=== PATIENT | male | born 1970 | race Caucasian/White ===

== ENCOUNTER 2017-04-04 19:49 | Emergency (ER) | payer OTHER ==
[2017-04-04 19:56] VITALS: BP 128/74; PULSE 79; TEMP 98.5; BMI 26.1
--- NOTE | 2017-04-04 19:56 | PDOC ---
Rapid Medical Evaluation Chief Complaint: Congestive Heart Failure Time Seen by Provider: 04/04/17 19:55 Medical Evaluation: Allergies Allergy/AdvReac Type Severity Reaction Status Date / Time No Known Allergies Allergy Verified 12/25/15 08:32 04/04/17 19:55 I have performed a brief in-person evaluation of this patient. The patient presents with a chief complain of: non productive cough/nasal congestion x5d. Momo fever/chills, n/v/d Pertinent physical exam findings:L/S CTAB I have ordered the following:cxr The patient will proceed to the ED for further evaluation.
--- NOTE | 2017-04-04 20:51 | PDOC ---
History of Present Illness - General Chief Complaint: Respiratory Stated Complaint: TROUBLE BREATHING Time Seen by Provider: 04/04/17 19:55 History Source: Patient Exam Limitations: No Limitations - History of Present Illness Initial Comments: 04/04/17 20:46 This is a 46-year-old man without significant past medical history of presents to the emergency department with 1 week dry unproductive cough. Patient denies any fevers. Patient states she's having difficulty breathing and increased pleuritic pain with respirations. Patient reports chest congestion. Patient states he seeking out care today as the chest congestion as gotten worse any feels that he is unable to clear mucus from his lungs. He denies any headaches, chills, abdominal pain, nausea, vomiting. Past History - Past Medical History Allergies/Adverse Reactions: Allergies Allergy/AdvReac Type Severity Reaction Status Date / Time No Known Allergies Allergy Verified 04/04/17 19:56 Home Medications: Ambulatory Orders NK [No Known Home Medication] 04/04/17 COPD: No Other medical history: denies - Suicide/Smoking/Psychosocial Hx Smoking Status: No Smoking History: Never smoked Number of Cigarettes Smoked Daily: 0 Hx Alcohol Use: No Drug/Substance Use Hx: No Substance Use Type: None Hx Substance Use Treatment: No Review of Systems - Review of Systems Able to Perform ROS?: Yes Is the patient limited Swedish proficient: No Constitutional: No: Symptoms Reported HEENTM: No: Symptoms Reported Respiratory: Yes: See HPI Cardiac (ROS): No: Symptoms Reported ABD/GI: No: Symptoms Reported : No: Symptoms Reported Musculoskeletal: No: Symptoms Reported Integumentary: No: Symptoms Reported Neurological: No: Symptoms reported *Physical Exam - Vital Signs Last Vital Signs Temp Pulse Resp BP Pulse Ox 98.5 F 79 18 128/74 99 04/04/17 19:54 04/04/17 19:54 04/04/17 19:54 04/04/17 19:54 04/04/17 19:54 - Physical Exam General Appearance: Yes: Appropriately Dressed. No: Apparent Distress HEENT: positive: RAFAELA, Pharyngeal Erythema, Nasal Congestion. negative: Tonsillar Exudate, Tonsillar Erythema Neck: positive: Trachea midline, Supple Respiratory/Chest: positive: Lungs Clear, Normal Breath Sounds. negative: Chest Tender, Respiratory Distress, Accessory Muscle Use Cardiovascular: positive: Regular Rhythm, Regular Rate, S1, S2. negative: Murmur Gastrointestinal/Abdominal: positive: Normal Bowel Sounds, Soft. negative: Tender Musculoskeletal: positive: Normal Inspection. negative: CVA Tenderness Integumentary: positive: Normal Color, Dry, Warm Neurologic: positive: cat operator II-XII NML intact, Fully Oriented, Alert, Normal Mood/ Affect, Normal Response, Motor Strength /5 Medical Decision Making - Medical Decision Making 04/04/17 20:47 A/P: This is a 46-year-old man without significant past medical history of presents to the emergency department with 1 week dry unproductive cough. Patient denies any fevers. Patient states she's having difficulty breathing and increased pleuritic pain with respirations. Patient reports chest congestion. Patient states he seeking out care today as the chest congestion as gotten worse any feels that he is unable to clear mucus from his lungs. He denies any headaches, chills, abdominal pain, nausea, vomiting. Evaluation of the oropharynx reveals peritonsillar erythema. There is no exudate or erythema on tonsils. There is no cobblestoning noted at posterior oropharynx. No tenderness over maxillary or frontal sinuses. TMs pearly silverio with appropriate light reflex. No streaking noted. There is no exudate or drainage noted in external auditory canals bilaterally. There is no cervical lymphadenopathy. Lungs clear to auscultation bilaterally. Respirations even and unlabored without sensory muscle use. S1 and S2 are present. Regular rate and rhythm. No murmurs rub or gallop. Abdomen soft nontender nondistended. Differential diagnosis includes pneumonia, bronchitis, viral infection I'll perform a chest x-ray and reevaluate patient after testing was complete. Patient is refusing pain medication at this time. 04/04/17 21:24 Chest x-ray as read by me: Costal angles clear without any signs of infiltrate or consolidations noted. Bony structures visualized are intact without any fractures. Cardiac silhouette is within normal limits. There is no change from previous x-rays. I discussed the physical exam findings, ancillary test results and final diagnoses with the patient. I answered all of the patient's questions. The patient was satisfied with the care received and felt comfortable with the discharge plan and treatment plan. The patient will call his doctor within 96 hours to arrange follow-up and will return to the Emergency Department with any new, persistent or worsening symptoms. *DC/Admit/Observation/Transfer Diagnosis at time of Disposition: Bronchitis - Discharge Dispostion Disposition: HOME Condition at time of disposition: Stable Admit: No - Referrals Referrals: Chris Ambriz [Primary Care Provider] - - Patient Instructions Additional Instructions: Take Tylenol or Motrin as needed for fever or pain. Follow manufacturers instructions for proper dosage. Keep well-hydrated. Take Mucinex as instructed by manufacturers instructions. Return to emergency department for fevers, worsening cough, chest pain, shortness of breath, dizziness, any other concerns. Thank you very much for choosing us to provide your emergent healthcare needs. - Post Discharge Activity
== END 2017-04-04 21:30 | disposition home or self-care (01) ==
LOC: JERFT 19:49
DX: J40 Bronchitis, not specified as acute or chronic (principal)
CPT/HCPCS: 71020-TC; 99281-25

== ENCOUNTER 2018-11-05 20:24 | Emergency (ER) | payer OTHER ==
--- NOTE | 2018-11-05 20:30 | PDOC ---
Rapid Medical Evaluation Time Seen by Provider: 11/05/18 20:28 Medical Evaluation: Allergies Allergy/AdvReac Type Severity Reaction Status Date / Time No Known Allergies Allergy Verified 04/04/17 19:56 11/05/18 20:28 I have performed a brief in-person evaluation of this patient. The patient presents with a chief complaint of: pleuritic chest pain and weakness x3 days Pertinent physical exam findings: Lungs CTAB. RRR. No m/r/g. I have ordered the following: labs, urine, cxr, ekg The patient will proceed to the ED for further evaluation. Discharge Disposition - Diagnosis Fatigue - Referrals - Patient Instructions - Post Discharge Activity
[2018-11-05 20:32] VITALS: BP 123/69; PULSE 69; TEMP 98.1; BMI 24.9
[2018-11-05] MEDS: SODIUM CHLORIDE 1,000 ML IV STA ×2 (21:53→22:06)
[2018-11-05 22:28] LABS: BASO % 0.2 % (0-2.0); EOS % 3.3 % (0-4.5); HEMATOCRIT 40.6 % (35.4-49); HEMOGLOBIN 14.1 GM/dL (11.7-16.9); LYMPH % 38.8 % (8-40); MCH 31.9 pg (25.7-33.7); MCHC 34.8 g/dl (32.0-35.9); MEAN CELL VOLUME 91.6 fl (80-96); MEAN PLT VOLUME 8.5 fl (7.5-11.1); MONO % 9.1 % (3.8-10.2); NEUT % 48.6 % (42.8-82.8); PLATELET COUNT 273 K/MM3 (134-434); RBC 4.43 M/mm3 (4.00-5.60); RDW 12.8 % (11.9-15.9); WHITE BLOOD COUNT 6.7 K/mm3 (4.0-10.0)
[2018-11-05 22:31] LABS: ALBUMIN 3.8 g/dl (3.4-5.0); ALK PHOS 120 U/L (45-117); ANION GAP 5 MMOL/L (8-16); BILIRUBIN,TOTAL 0.4 mg/dL (0.2-1); CALCIUM 8.9 mg/dL (8.5-10.1); CHLORIDE 104 mmol/L (98-107); CO2 29 mmol/L (21-32); CREATININE 0.7 mg/dL (0.55-1.3); GLUCOSE,RANDOM 108 mg/dL (74-106); MAGNESIUM 2.4 mg/dL (1.8-2.4); POTASSIUM 4.4 mmol/L (3.5-5.1); SGOT/AST 28 U/L (15-37); SGPT/ALT 42 U/L (13-61); SODIUM 138 mmol/L (136-145); TOT PROT 7.3 g/dl (6.4-8.2)
--- NOTE | 2018-11-05 22:47 | PDOC ---
*Physical Exam - Vital Signs Last Vital Signs Temp Pulse Resp BP Pulse Ox 98.1 F 69 18 123/69 99 11/05/18 20:29 11/05/18 20:29 11/05/18 20:29 11/05/18 20:29 11/05/18 20:29 ED Treatment Course - LABORATORY CBC & Chemistry Diagram: 11/05/18 21:50 11/05/18 21:50 - ADDITIONAL ORDERS Additional order review: Laboratory Results 11/05/18 21:50 Sodium 138 Potassium 4.4 Chloride 104 Carbon Dioxide 29 Anion Gap 5 L BUN 21.0 H Creatinine 0.7 Est GFR (CKD-EPI)AfAm 131.17 Est GFR (CKD-EPI)NonAf 113.17 Random Glucose 108 H Calcium 8.9 Magnesium 2.4 Total Bilirubin 0.4 AST 28 ALT 42 Alkaline Phosphatase 120 H Creatine Kinase 111 Troponin I < 0.02 Total Protein 7.3 Albumin 3.8 11/05/18 21:50 RBC 4.43 MCV 91.6 MCHC 34.8 RDW 12.8 MPV 8.5 Neutrophils % 48.6 Lymphocytes % 38.8 Monocytes % 9.1 Eosinophils % 3.3 Basophils % 0.2 - Medications Given in the ED: ED Medications Discontinued Medications Generic Name Dose Route Start Last Admin Trade Name Freq PRN Reason Stop Dose Admin Sodium Chloride 1,000 mls @ 1,000 mls/hr 11/05/18 20:31 11/05/18 22:06 Normal Saline - IV 11/05/18 21:30 Not Given ASDIR STA Medical Decision Making - Medical Decision Making 11/05/18 22:47 Case reviewed, agree with assessment and plan *DC/Admit/Observation/Transfer Diagnosis at time of Disposition: Fatigue - Referrals - Patient Instructions - Post Discharge Activity
--- NOTE | 2018-11-05 23:13 | PDOC ---
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) Past History - Past Medical History Allergies/Adverse Reactions: Allergies Allergy/AdvReac Type Severity Reaction Status Date / Time No Known Allergies Allergy Verified 11/05/18 20:32 Home Medications: Ambulatory Orders NK [No Known Home Medication] 04/04/17 COPD: No - Suicide/Smoking/Psychosocial Hx Smoking Status: No Smoking History: Never smoked Number of Cigarettes Smoked Daily: 0 Hx Alcohol Use: No Drug/Substance Use Hx: No Substance Use Type: None Hx Substance Use Treatment: No *Physical Exam - Vital Signs Last Vital Signs Temp Pulse Resp BP Pulse Ox 98.1 F 69 18 123/69 99 11/05/18 20:29 11/05/18 20:29 11/05/18 20:29 11/05/18 20:29 11/05/18 20:29 - Physical Exam General Appearance: No: Apparent Distress HEENT: positive: Pharynx Normal Respiratory/Chest: positive: Lungs Clear, Normal Breath Sounds. negative: Respiratory Distress Cardiovascular: positive: Regular Rhythm, Regular Rate, S1, S2. negative: Murmur Gastrointestinal/Abdominal: positive: Normal Bowel Sounds, Soft. negative: Tender, Distended, Guarding, Rebound Extremity: negative: Pedal Edema, Swelling, Calf Tenderness Neurologic: positive: Alert, Normal Mood/Affect Heart Score/ECG Review - History History: Slightly suspicious - Electrocardiogram EKG: Normal - Age Age: 45-65 - Risk Factors Based on the list above the patient has:: No risk factors known - Troponin Troponin: </= normal limit - Score Heart Score - Total: 1 ED Treatment Course - LABORATORY CBC & Chemistry Diagram: 11/05/18 21:50 11/05/18 21:50 - ADDITIONAL ORDERS Additional order review: Laboratory Results 11/05/18 21:50 Sodium 138 Potassium 4.4 Chloride 104 Carbon Dioxide 29 Anion Gap 5 L BUN 21.0 H Creatinine 0.7 Est GFR (CKD-EPI)AfAm 131.17 Est GFR (CKD-EPI)NonAf 113.17 Random Glucose 108 H Calcium 8.9 Magnesium 2.4 Total Bilirubin 0.4 AST 28 ALT 42 Alkaline Phosphatase 120 H Creatine Kinase 111 Troponin I < 0.02 Total Protein 7.3 Albumin 3.8 07/11/19 21:50 RBC 4.43 MCV 91.6 MCHC 34.8 RDW 12.8 MPV 8.5 Neutrophils % 48.6 Lymphocytes % 38.8 Monocytes % 9.1 Eosinophils % 3.3 Basophils % 0.2 - Medications Given in the ED: ED Medications Discontinued Medications Generic Name Dose Route Start Last Admin Trade Name Freq PRN Reason Stop Dose Admin Sodium Chloride 1,000 mls @ 1,000 mls/hr 11/05/18 20:31 11/05/18 22:06 Normal Saline - IV 11/05/18 21:30 Not Given ASDIR STA Medical Decision Making - Medical Decision Making 48 y/o M with no sig pmh, 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 Also with occasional nasal congestion. Denies fever, cough, rhinorrhea, throat pain, n/v/d. Patient was seen in 2011 for similar complaints ; was told it was probable bronchitis vs gastritis at the time. Denies smoking, drug use, recent travel. Denies FH of CAD or IA. Denies any recent surgeries PERC negative EKG: NSR 64 bpm, TWI lead V2 CXR negative Labs unremarkable No significant risk factors for ACS Heart score 1 Stable for dc 11/05/18 23:09 *DC/Admit/Observation/Transfer Diagnosis at time of Disposition: Pleuritic chest pain - Discharge Dispostion Disposition: HOME Condition at time of disposition: Stable Decision to Admit order: No - Referrals - Patient Instructions Printed Discharge Instructions: DI for Chest Pain Additional Instructions: Thank you for choosing [facility]. It was a pleasure taking care of you. Your labs and chest xray were normal Follow-up with your doctor in 2 days for further evaluation Return to the Emergency Department if your symptoms worsen or persist or have other concerning symptoms. Ghada por elegir el [facility]. Fue un placer cuidar de ti. Tus laboratorios y radiografas de trax cassandra normales. Reina un seguimiento con camacho mdico en 2 morales para isaias evaluacin adicional. Regrese al Departamento de Emergencias si shahzad sntomas empeoran o persisten o si tiene otros sntomas relacionados. - Post Discharge Activity
--- NOTE | 2018-11-06 13:33 | EKG ---
Test Reason : Blood Pressure : / mmHG Vent. Rate : 064 BPM Atrial Rate : 064 BPM P-R Int : 166 ms QRS Dur : 084 ms QT Int : 386 ms P-R-T Axes : 049 048 040 degrees QTc Int : 398 ms NORMAL SINUS RHYTHM POSSIBLE LEFT ATRIAL ENLARGEMENT WHEN COMPARED WITH ECG OF 25-DEC-2015 08:28, NO SIGNIFICANT CHANGE WAS FOUND Confirmed by AYLA HARRIS MD ([id number]) on 11/06/2018 1:33:02 PM Referred By: Confirmed By:AYLA HARRIS MD
== END 2018-11-05 23:22 | disposition home or self-care (01) ==
LOC: JER 20:24
DX: R07.81 Pleurodynia (principal)
CPT/HCPCS: 36415; 71046-TC-FY; 80053; 82550; 83735; 84484; 85025; 86618; 86666; 86753; 93005; 93010; 99283-25; J7030

== ENCOUNTER 2019-05-17 09:46 | Emergency (ER) | payer OTHER ==
[2019-05-17 10:00] VITALS: BP 127/74; PULSE 98; BMI 25.5
[2019-05-17] MEDS ORDERED: ACETAMINOPHEN 325 MG TABLET (FP) PO ONE (10:35)
[2019-05-17] MEDS ORDERED: ACETAMINOPHEN 325 MG TABLET (FP) ONE (10:37)
[2019-05-17 11:12] VITALS: TEMP 99.8
--- NOTE | 2019-05-17 11:34 | PDOC ---
History of Present Illness - General Chief Complaint: Cold Symptoms Stated Complaint: Cold Symptoms Time Seen by Provider: 05/17/19 10:14 History Source: Patient Exam Limitations: No Limitations Past History - Past Medical History Allergies/Adverse Reactions: Allergies Allergy/AdvReac Type Severity Reaction Status Date / Time No Known Allergies Allergy Verified 11/05/18 20:32 Home Medications: Ambulatory Orders NK [No Known Home Medication] 04/04/17 COPD: No Other medical history: DENIES - Immunization History Immunization Up to Date: Yes - Psycho Social/Smoking Cessation Hx Smoking Status: No Smoking History: Never smoked Number of Cigarettes Smoked Daily: 0 Hx Alcohol Use: No Drug/Substance Use Hx: No Substance Use Type: None Hx Substance Use Treatment: No *Physical Exam - Vital Signs Last Vital Signs Temp Pulse Resp BP Pulse Ox 99.8 F H 98 H 18 127/74 100 05/17/19 11:12 05/17/19 09:57 05/17/19 09:57 05/17/19 09:57 05/17/19 09:57 - Physical Exam General Appearance: No: Apparent Distress HEENT: positive: Normal ENT Inspection, TMs Normal, Pharynx Normal. negative: Sinus Tenderness Respiratory/Chest: positive: Lungs Clear, Normal Breath Sounds. negative: Respiratory Distress Cardiovascular: positive: Regular Rhythm, Regular Rate, S1, S2. negative: Murmur Gastrointestinal/Abdominal: positive: Soft. negative: Tender Integumentary: positive: Normal Color Neurologic: positive: Alert ED Treatment Course - Medications Given in the ED: ED Medications Discontinued Medications Generic Name Dose Route Start Last Admin Trade Name Freq PRN Reason Stop Dose Admin Acetaminophen 975 mg 05/17/19 10:35 05/17/19 10:38 Tylenol - PO 05/17/19 10:36 975 mg ONCE ONE Administration Medical Decision Making - Medical Decision Making 48 y/o M with no sig pmh presents with subjective fever, body aches, chills, cough, rhinorrhea x 4 days. +sick family members at home with similar sxs. Has been using mucinex without relief. Did not take any antipyretics today. Denies recent travel, sob, cp, abd pain, n/v/d. Likely viral URI Patient outside window frame for starting flu treatment Given Tylenol with reduction of fever supportive care encourage 05/17/19 11:30 Discharge - Discharge Information Problems reviewed: Yes Clinical Impression/Diagnosis: Viral URI Condition: Stable Disposition: HOME - Admission No - Additional Discharge Information Prescription Drug Monitoring Program (I-STOP) results: I-STOP not reviewed - Follow up/Referral Referrals: Chris Ambriz [Primary Care Provider] - 2 Days - Patient Discharge Instructions Patient Printed Discharge Instructions: DI for Viral Upper Respiratory Infection -- Adult Additional Instructions: Thank you for choosing [facility]. It was a pleasure taking care of you. Take Tylenol every 4 and Motrin every 6 hours as needed for fever Recommend rest, hydration Follow-up with your doctor in 2 days Return to the Emergency Department if your symptoms worsen or persist or have other concerning symptoms. - Post Discharge Activity
== END 2019-05-17 11:47 | disposition home or self-care (01) ==
LOC: JERFT 09:46
DX: J06.9 Acute upper respiratory infection, unspecified (principal); B97.89 Other viral agents as the cause of diseases classified elsewhere
CPT/HCPCS: 99281-25

== ENCOUNTER 2019-07-17 10:08 | Emergency (ER) | payer SELFPAY ==
[2019-07-17 10:21] VITALS: BP 144/91; PULSE 92; TEMP 98.1; BMI 29.8
--- NOTE | 2019-07-17 10:38 | PDOC ---
History of Present Illness - General Chief Complaint: Cold Symptoms Stated Complaint: COVID EXPO Time Seen by Provider: 07/17/19 10:24 History Source: Patient Exam Limitations: No Limitations - History of Present Illness Initial Comments: 07/17/19 10:33 48 year old male with no significant medical history presented today with 3 weeks of coughing states coughing is now productive with yellowish phlegm and shortness of breath. Patient reports that his daughter was exposed to a co- worker that tested positive for covid-19. Denies fever, chills, bodyaches, sore throat, vomiting or diarrhea. Also states no recent travel. Is this a multiple visit Asthma Patient?: No Timing/Duration: reports: other (3 weeks) Severity: reports: mild Possible Cause: Yes: no prior episodes Modifying Factors: improves with: coughing Associated Symptoms: reports: cough, shortness of breath. denies: fever/chills Past History - Travel Traveled outside of the country in the last 30 days: No Close contact w/someone who was outside of country & ill: No - Past Medical History Allergies/Adverse Reactions: Allergies Allergy/AdvReac Type Severity Reaction Status Date / Time No Known Allergies Allergy Verified 07/17/19 10:22 Home Medications: Ambulatory Orders Azithromycin [Zithromax 250mg Tablets -] 250 mg PO UTDICT #6 tab 07/17/19 COPD: No - Immunization History Immunization Up to Date: Yes - Psycho Social/Smoking Cessation Hx Smoking Status: No Smoking History: Never smoked Number of Cigarettes Smoked Daily: 0 Hx Alcohol Use: No Drug/Substance Use Hx: No Substance Use Type: None Hx Substance Use Treatment: No Respiratory Specific PMHX - Complaint Specific PMHX Hx Airway Support: No Hx Asthma: No Hx Vaping: No Hx Allergic Rhinitis: No Hx Pulmonary Embolus: No Review of Systems - Review of Systems Able to Perform ROS?: Yes Is the patient limited Kinyarwanda proficient: No Constitutional: No: Chills, Fever, Malaise HEENTM: No: Nose Pain, Nose Congestion Respiratory: Yes: Cough. No: Shortness of Breath Cardiac (ROS): No: Chest Pain ABD/GI: No: Poor Appetite : No: Hematuria Musculoskeletal: No: Joint Pain Integumentary: No: Bruising Neurological: No: Headache, Numbness, Paresthesia *Physical Exam - Vital Signs Last Vital Signs Temp Pulse Resp BP Pulse Ox 98.1 F 92 H 20 144/91 100 07/17/19 10:19 07/17/19 10:19 07/17/19 10:19 07/17/19 10:07/17/19 10:19 - Physical Exam General Appearance: Yes: Nourished, Appropriately Dressed HEENT: positive: TMs Normal, Pharynx Normal Neck: positive: Supple. 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 Patient reports that his daughter was exposed to a co- worker that tested positive for covid-19. Denies fever, chills, bodyaches, sore throat, vomiting or diarrhea. Also states no recent travel. coughing x 3 weeks this patient screen is not positive for covid-19 chest xray will be ordered for coughing 07/17/19 11:31 chest xray Discharge - Discharge Information Problems reviewed: Yes Clinical Impression/Diagnosis: Bronchitis Condition: Good Disposition: HOME - Admission No - Additional Discharge Information Prescriptions: Azithromycin [Zithromax 250mg Tablets -] 250 mg PO UTDICT #6 tab - Follow up/Referral - Patient Discharge Instructions Patient Printed Discharge Instructions: DI for Viral Upper Respiratory Infection -- Adult Additional Instructions: Please drink plenty fluids and rest Take medication as prescribed. May take ibuprofen and acetaminophen for pain and fever - Post Discharge Activity Work/Back to School Note: Back to Work
== END 2019-07-17 11:41 | disposition home or self-care (01) ==
LOC: JER 10:08
DX: Z20.828 Contact with and (suspected) exposure to other viral communicable diseases (principal); J40 Bronchitis, not specified as acute or chronic; R05 Cough; R06.02 Shortness of breath
CPT/HCPCS: 71045-TC-FY; 99283-25

== ENCOUNTER 2020-07-29 18:19 | Emergency (ER) | payer SELFPAY ==
[2020-07-29 18:29] VITALS: TEMP 98.1; BMI 28.3
[2020-07-29 20:25] LABS: BASO % 0.6 % (0-2.0); EOS % 1.9 % (0-4.5); HEMATOCRIT 38.1 % (35.4-49); HEMOGLOBIN 13.1 GM/dL (11.7-16.9); LYMPH % 37.7 % (8-40); MCH 31.6 pg (25.7-33.7); MCHC 34.5 g/dl (32.0-35.9); MEAN CELL VOLUME 91.7 fl (80-96); MEAN PLT VOLUME 8.7 fl (7.5-11.1); NEUT % 51.8 % (42.8-82.8); PLATELET COUNT 269 K/MM3 (134-434); RBC 4.15 M/mm3 (4.00-5.60); RDW 13.2 % (11.9-15.9); WHITE BLOOD COUNT 6.7 K/mm3 (4.0-10.0)
[2020-07-29 20:48] LABS: CHLORIDE 106 mmol/L (98-107); POTASSIUM 4.6 mmol/L (3.5-5.1); SODIUM 138 mmol/L (136-145)
[2020-07-29] MEDS ORDERED: ACETAMINOPHEN 325 MG TABLET (FP) PO ONE (20:48)
[2020-07-29] MEDS ORDERED: MAG HYDROX/AL HYDROX/SIMETH 30 ML UNIT-DOSE CUP PO ONE (20:48)
[2020-07-29] MEDS ORDERED: FAMOTIDINE 20 MG/50 ML IVPB 20 MG/50 ML MG IVPB ONE ×2 (20:48→20:59)
[2020-07-29 20:51] LABS: ALBUMIN 3.9 g/dl (3.4-5.0); ANION GAP 6 MMOL/L (8-16); BLOOD UREA NITROGEN 14.4 mg/dL (7-18); CO2 26 mmol/L (21-32); GLUCOSE,RANDOM 92 mg/dL (74-106); LIPASE 82 U/L (73-393)
[2020-07-29 20:54] LABS: CREATININE 0.6 mg/dL (0.55-1.3); SGOT/AST 31 U/L (15-37); SGPT/ALT 35 U/L (13-61)
[2020-07-29 20:55] LABS: BILIRUBIN,TOTAL 0.4 mg/dL (0.2-1); TOT PROT 7.4 g/dl (6.4-8.2)
[2020-07-29 20:56] LABS: ALK PHOS 95 U/L (45-117)
[2020-07-29 20:58] LABS: N-TERMINAL BNP 25.4 pg/ml (5-125)
[2020-07-29] MEDS ORDERED: ACETAMINOPHEN 325 MG TABLET (FP) ONE (20:59)
[2020-07-29] MEDS ORDERED: MAG HYDROX/AL HYDROX/SIMETH 30 ML UNIT-DOSE CUP ONE (20:59)
[2020-07-29 22:57] VITALS: BP 129/78; PULSE 73
== END 2020-07-29 22:57 | disposition home or self-care (01) ==
LOC: JER 18:19 → SUPCPDRO 18:19 → JER 22:57
PROC: 3E033GC Introduction of Other Therapeutic Substance into Peripheral Vein, Percutaneous Approach (ICD-10-PCS; principal; 2020-07-29)
DX: R10.9 Unspecified abdominal pain (principal)
CPT/HCPCS: 36415; 71045-TC-FY; 76705-TC; 80053; 83690; 83880; 84484; 85025; 93005; 93010; 99285-25

== ENCOUNTER 2021-12-08 14:39 | Emergency (ER) | payer OTHER ==
[2021-12-08 14:48] VITALS: BP 126/79; PULSE 67; RESP 19; TEMP 98; BMI 27.8
[2021-12-08] MEDS ORDERED: MECLIZINE HCL 25 MG TABLET (FP) PO ONE (15:22)
[2021-12-08] MEDS ORDERED: ASPIRIN 81 MG CHEWABLE TABLETS PO ONE (15:22)
[2021-12-08] MEDS ORDERED: ASPIRIN 81 MG CHEWABLE TABLETS ONE (15:27)
[2021-12-08] MEDS ORDERED: MECLIZINE HCL 12.5 MG TABLET ONE (15:27)
[2021-12-08] MEDS ORDERED: MECLIZINE HCL 25 MG TABLET (FP) ONE (15:28)
[2021-12-08 15:46] LABS: BASO % 0.2 % (0-2.0); EOS % 1.6 % (0-4.5); HEMATOCRIT 39.7 % (35.4-49); HEMOGLOBIN 14.3 GM/dL (11.7-16.9); LYMPH % 33.7 % (8-40); MCHC 35.9 g/dl (32.0-35.9); MEAN CELL VOLUME 89.1 fl (80-96); MONO % 7.3 % (3.8-10.2); NEUT % 57.2 % (42.8-82.8); PLATELET COUNT 243 10^3/uL (134-434); RBC 4.46 M/mm3 (4.00-5.60); RDW 12.4 % (11.9-15.9); WHITE BLOOD COUNT 6.2 K/mm3 (4.0-10.0)
[2021-12-08 16:14] LABS: CHLORIDE 105 mmol/L (98-107); SODIUM 140 mmol/L (136-145)
[2021-12-08 16:17] LABS: BLOOD UREA NITROGEN 15.2 mg/dL (7-18); CALCIUM 9.4 mg/dL (8.5-10.1)
[2021-12-08 16:18] LABS: ALBUMIN 4.2 g/dl (3.4-5.0); ANION GAP 5 MMOL/L (8-16); CO2 30 mmol/L (21-32); GLUCOSE,RANDOM 91 mg/dL (74-106)
[2021-12-08 16:21] LABS: CREATININE 0.8 mg/dL (0.55-1.3); SGOT/AST 25 U/L (15-37); SGPT/ALT 36 U/L (13-61)
[2021-12-08 16:22] LABS: BILIRUBIN,TOTAL 0.7 mg/dL (0.2-1); TOT PROT 7.9 g/dl (6.4-8.2)
[2021-12-08 16:23] LABS: ALK PHOS 115 U/L (45-117)
== END 2021-12-08 17:18 | disposition home or self-care (01) ==
LOC: JERFT 14:39 → JER 14:39 → JERFT 17:18
DX: R42 Dizziness and giddiness (principal)
CPT/HCPCS: 36415; 70450-TC; 71046-TC-FY; 80053; 84484; 85025; 93005; 93010; 99285-25

== ENCOUNTER 2022-06-09 19:59 | Emergency (ER) | payer OTHER ==
[2022-06-09 20:04] VITALS: BP 147/87; PULSE 81; RESP 18; TEMP 97.9; BMI 27.8
[2022-06-09] MEDS ORDERED: POLYETHYLENE GLYCOL (HEALTHYLAX) 3350 17 GM PACKET PO ONE (21:15)
[2022-06-09] MEDS ORDERED: POLYETHYLENE GLYCOL (HEALTHYLAX) 3350 17 GM PACKET ONE (21:26)
[2022-06-09] MEDS ORDERED: SIMETHICONE 80 MG TAB.CHEW (FP) PO ONE (21:27)
[2022-06-09] MEDS ORDERED: SIMETHICONE 80 MG TAB.CHEW (FP) ONE (21:29)
== END 2022-06-09 22:05 | disposition home or self-care (01) ==
LOC: JER 19:59
DX: K59.00 Constipation, unspecified (principal)
CPT/HCPCS: 0241U-QW; 99283-25

== ENCOUNTER 2022-07-27 23:51 | Emergency (ER) | payer OTHER ==
[2022-07-28 00:06] VITALS: BP 145/86; PULSE 71; RESP 20; TEMP 98; BMI 28.3
[2022-07-28 01:26] LABS: BASO % 0.4 % (0-2.0); EOS % 2.5 % (0-4.5); HEMATOCRIT 39.1 % (35.4-49); HEMOGLOBIN 13.5 GM/dL (11.7-16.9); LYMPH % 39.3 % (8-40); MCH 31.3 pg (25.7-33.7); MCHC 34.5 g/dl (32.0-35.9); MEAN CELL VOLUME 90.5 fl (80-96); MEAN PLT VOLUME 8.6 fl (7.5-11.1); MONO % 8.9 % (3.8-10.2); NEUT % 48.9 % (42.8-82.8); PLATELET COUNT 251 10^3/uL (134-434); RBC 4.32 M/mm3 (4.00-5.60); RDW 13.3 % (11.9-15.9); WHITE BLOOD COUNT 6.1 K/mm3 (4.0-10.0)
[2022-07-28 01:27] LABS: INR 1.02 (0.83-1.09); PROTHROMBIN TIME (PATIENT) 11.8 SEC (9.7-13.0)
[2022-07-28 01:38] LABS: CHLORIDE 110 mmol/L (98-107); SODIUM 140 mmol/L (136-145)
[2022-07-28 01:41] LABS: ALBUMIN 3.8 g/dl (3.4-5.0); ANION GAP 4 MMOL/L (8-16); BLOOD UREA NITROGEN 19.5 mg/dL (7-18); CALCIUM 8.9 mg/dL (8.5-10.1); CO2 27 mmol/L (21-32); GLUCOSE,RANDOM 120 mg/dL (74-106)
[2022-07-28 01:44] LABS: CREATININE 1.1 mg/dL (0.55-1.3)
[2022-07-28 01:45] LABS: SGOT/AST 36 U/L (15-37); SGPT/ALT 53 U/L (13-61)
[2022-07-28 01:46] LABS: BILIRUBIN,TOTAL 0.2 mg/dL (0.2-1); TOT PROT 7.3 g/dl (6.4-8.2)
[2022-07-28 01:47] LABS: ALK PHOS 120 U/L (45-117)
[2022-07-28] MEDS ORDERED: ACETAMINOPHEN 500 MG TABLET (FP) PO ONE (02:32)
[2022-07-28] MEDS ORDERED: LIDOCAINE 5% TOPICAL PATCH TP ONE (02:33)
[2022-07-28] MEDS ORDERED: ACETAMINOPHEN 325 MG TABLET (FP) ONE (02:49)
[2022-07-28] MEDS ORDERED: LIDOCAINE 5% TOPICAL PATCH ONE (02:49)
[2022-07-28] MEDS ORDERED: LIDOCAINE PATCH REMOVAL MC SCH (22:00)
== END 2022-07-28 02:50 | disposition home or self-care (01) ==
LOC: JER 23:51
DX: R06.02 Shortness of breath (principal); R07.89 Other chest pain; Z20.822 Contact with and (suspected) exposure to COVID-19
CPT/HCPCS: 0241U-QW; 36415; 71046-TC-FY; 80053; 82550; 84484; 85025; 85610; 93005; 93010; 99285-25

== ENCOUNTER 2022-08-23 18:40 | Emergency (ER) | payer OTHER ==
[2022-08-23 18:46] VITALS: RESP 18; TEMP 98; BMI 27.6
[2022-08-23 20:05] LABS: BASO % 0.4 % (0-2.0); EOS % 0.7 % (0-4.5); HEMATOCRIT 39.8 % (35.4-49); HEMOGLOBIN 14.1 GM/dL (11.7-16.9); LYMPH % 26.2 % (8-40); MCH 31.6 pg (25.7-33.7); MCHC 35.4 g/dl (32.0-35.9); MEAN CELL VOLUME 89.1 fl (80-96); MEAN PLT VOLUME 7.9 fl (7.5-11.1); MONO % 6.2 % (3.8-10.2); NEUT % 66.5 % (42.8-82.8); PLATELET COUNT 278 10^3/uL (134-434); RBC 4.47 M/mm3 (4.00-5.60); RDW 13.2 % (11.9-15.9); WHITE BLOOD COUNT 9.4 K/mm3 (4.0-10.0)
[2022-08-23 20:11] LABS: INR 1.01 (0.83-1.09); PROTHROMBIN TIME (PATIENT) 11.7 SEC (9.7-13.0)
[2022-08-23 20:14] LABS: ACTIVATED PTT 35.2 SECONDS (25.2-36.5)
[2022-08-23 20:24] LABS: POTASSIUM 3.9 mmol/L (3.5-5.1)
[2022-08-23 20:26] LABS: CALCIUM 9.5 mg/dL (8.5-10.1)
[2022-08-23 20:27] LABS: BLOOD UREA NITROGEN 12.7 mg/dL (7-18)
[2022-08-23 20:29] LABS: CREATININE 0.7 mg/dL (0.55-1.3)
[2022-08-23 20:31] LABS: BILIRUBIN,TOTAL 0.4 mg/dL (0.2-1); TOT PROT 7.5 g/dl (6.4-8.2)
[2022-08-23 23:22] VITALS: BP 122/85; PULSE 65
== END 2022-08-23 23:23 | disposition home or self-care (01) ==
LOC: JER 18:40
DX: R06.02 Shortness of breath (principal); R53.1 Weakness
CPT/HCPCS: 0241U-QW; 36415; 71250-TC; 80053; 84484; 85025; 85610; 85730; 93005; 93010; 99285-25

== ENCOUNTER 2022-08-31 21:28 | Emergency (ER) | payer OTHER ==
[2022-08-31 21:34] VITALS: BP 122/72; PULSE 74; RESP 19; TEMP 98; BMI 27.6
[2022-09-01] MEDS ORDERED: AZITHROMYCIN 500 MG TABLET PO SCH (10:00)
== END 2022-09-01 01:13 | disposition home or self-care (01) ==
LOC: JERFT 21:28 → JER 21:28
DX: R05.9 Cough, unspecified (principal); J18.9 Pneumonia, unspecified organism; Z20.822 Contact with and (suspected) exposure to COVID-19
CPT/HCPCS: 0241U-QW; 71046-TC-FY; 99284-25

== ENCOUNTER 2022-12-18 10:49 | Emergency (ER) | payer OTHER ==
[2022-12-18 10:58] VITALS: BP 132/80; PULSE 74; RESP 18; TEMP 98.1; BMI 28.5
[2022-12-18] MEDS ORDERED: KETOROLAC TROMETHAMINE 30 MG/1 ML VIAL IM ONE (12:03)
[2022-12-18] MEDS ORDERED: LIDOCAINE 5% TOPICAL PATCH TP ONE (12:03)
[2022-12-18] MEDS ORDERED: CYCLOBENZAPRINE HCL 10 MG TABLET (FP) PO ONE (12:03)
[2022-12-18] MEDS ORDERED: ACETAMINOPHEN 500 MG TABLET (FP) PO ONE (12:03)
[2022-12-18] MEDS ORDERED: CYCLOBENZAPRINE HCL 10 MG TABLET (FP) ONE (12:08)
[2022-12-18] MEDS ORDERED: LIDOCAINE 5% TOPICAL PATCH ONE (12:08)
[2022-12-18] MEDS ORDERED: KETOROLAC TROMETHAMINE 15 MG/ML VIAL ONE (12:08)
[2022-12-18] MEDS ORDERED: ACETAMINOPHEN 500 MG TABLET (FP) ONE (12:08)
[2022-12-18] MEDS ORDERED: LIDOCAINE PATCH REMOVAL MC SCH (22:00)
== END 2022-12-18 14:08 | disposition home or self-care (01) ==
LOC: JERFT 10:49
PROC: 3E0233Z Introduction of Anti-inflammatory into Muscle, Percutaneous Approach (ICD-10-PCS; principal; 2022-12-18)
DX: S39.012A Strain of muscle, fascia and tendon of lower back, initial encounter (principal); X50.1XXA Overexertion from prolonged static or awkward postures, initial encounter; Y99.0 Civilian activity done for income or pay
CPT/HCPCS: 99284-25

== ENCOUNTER 2023-09-20 17:47 | Emergency (ER) | payer OTHER ==
[2023-09-20 17:54] VITALS: BP 126/77; PULSE 74; RESP 18; TEMP 98; BMI 28.3
[2023-09-20 18:57] LABS: HEMATOCRIT 40.9 % (35.4-49); HEMOGLOBIN 14.4 GM/dL (11.7-16.9); MCH 32.2 pg (25.7-33.7); MCHC 35.3 g/dl (32.0-35.9); RBC 4.49 M/mm3 (4.00-5.60); WHITE BLOOD COUNT 7.2 K/mm3 (4.0-10.0)
[2023-09-20 18:58] LABS: BASO % 0.3 % (0-2.0); EOS % 1.4 % (0-4.5); MONO % 6.5 % (3.8-10.2); NEUT % 58.8 % (42.8-82.8); PLATELET COUNT 247 10^3/uL (134-434)
[2023-09-20 19:14] LABS: URINE APPEARANCE CLEAR; URINE BILIRUBIN NEGATIVE (NEGATIVE); URINE COLOR YELLOW; URINE GLUCOSE (UA) NEGATIVE (NEGATIVE); URINE KETONE TRACE (NEGATIVE); URINE LEUK ESTERASE NEGATIVE (NEGATIVE); URINE NITRITE NEGATIVE (NEGATIVE); URINE PROTEIN NEGATIVE (NEGATIVE); URINE UROBILINOGEN 0.2 mg/dL (0.2-1.0)
[2023-09-20 19:18] LABS: CALCIUM 9.1 mg/dL (8.5-10.1)
[2023-09-20 19:19] LABS: ALBUMIN 4.1 g/dl (3.4-5.0); BLOOD UREA NITROGEN 18.8 mg/dL (7-18)
[2023-09-20 19:22] LABS: CREATININE 0.8 mg/dL (0.55-1.3)
[2023-09-20 19:23] LABS: BILIRUBIN,TOTAL 0.4 mg/dL (0.2-1); TOT PROT 7.6 g/dl (6.4-8.2)
[2023-09-20] MEDS: SODIUM CHLORIDE 0.9% 500 ML INFUS.BAG IV ONE (20:07)
== END 2023-09-20 21:11 | disposition home or self-care (01) ==
LOC: JER 17:47
DX: R53.83 Other fatigue (principal); E86.0 Dehydration
CPT/HCPCS: 36415; 80053; 81003; 82962; 85025; 87086; 93005; 93010; 99284-25

== ENCOUNTER 2024-04-24 18:05 | Emergency (ER) | payer OTHER ==
[2024-04-24 18:21] VITALS: BP 126/84; PULSE 102; RESP 16; TEMP 99.1; BMI 25.2
[2024-04-24] MEDS ORDERED: ONDANSETRON 4 MG/2 ML VIAL ONE (20:18)
[2024-04-24] MEDS ORDERED: ACETAMINOPHEN 325 MG TABLET (FP) ONE (20:18)
[2024-04-24] MEDS ORDERED: MAG HYDROX/AL HYDROX/SIMETH 30 ML UNIT-DOSE CUP ONE (20:18)
[2024-04-24] MEDS ORDERED: FAMOTIDINE 20 MG/50 ML IVPB 20 MG/50 ML MG IVPB ONE (20:18)
[2024-04-24] MEDS: ACETAMINOPHEN 500 MG TABLET (FP) PO ONE (20:53)
[2024-04-24] MEDS: FAMOTIDINE 20 MG/50 ML IVPB 20 MG/50 ML MG IVPB ONE (20:53)
[2024-04-24] MEDS: ONDANSETRON 4 MG/2 ML VIAL IVPB ONE (20:53)
[2024-04-24] MEDS: MAG HYDROX/AL HYDROX/SIMETH -MYLANTA- ORAL SUSPENSION PO ONE (20:53)
[2024-04-24 21:06] LABS: BASO % 0.1 % (0-2.0); EOS % 0.1 % (0-4.5); HEMATOCRIT 45.6 % (35.4-49); HEMOGLOBIN 15.6 GM/dL (11.7-16.9); LYMPH % 7.4 % (8-40); MCHC 34.2 g/dl (32.0-35.9); MEAN CELL VOLUME 90.6 fl (80-96); MEAN PLT VOLUME 8.5 fl (7.5-11.1); MONO % 5.2 % (3.8-10.2); NEUT % 87.2 % (42.8-82.8); PLATELET COUNT 247 10^3/uL (134-434); RBC 5.04 M/mm3 (4.00-5.60); RDW 12.9 % (11.9-15.9); WHITE BLOOD COUNT 11.5 K/mm3 (4.0-10.0)
[2024-04-24 21:41] LABS: POTASSIUM 4.2 mmol/L (3.5-5.1)
[2024-04-24 21:44] LABS: ALBUMIN 3.9 g/dl (3.4-5.0); BLOOD UREA NITROGEN 21.6 mg/dL (7-18); CALCIUM 9.3 mg/dL (8.5-10.1)
[2024-04-24 21:47] LABS: CREATININE 0.8 mg/dL (0.55-1.3)
[2024-04-24 21:49] LABS: BILIRUBIN,TOTAL 0.6 mg/dL (0.2-1); TOT PROT 7.5 g/dl (6.4-8.2)
== END 2024-04-24 22:51 | disposition home or self-care (01) ==
LOC: JER 18:05
PROC: 3E033GC Introduction of Other Therapeutic Substance into Peripheral Vein, Percutaneous Approach (ICD-10-PCS; principal; 2024-04-24)
PROC: 3E033GC Introduction of Other Therapeutic Substance into Peripheral Vein, Percutaneous Approach (ICD-10-PCS; 2024-04-24)
DX: R11.2 Nausea with vomiting, unspecified (principal); R10.13 Epigastric pain; K59.00 Constipation, unspecified; Z20.822 Contact with and (suspected) exposure to COVID-19
CPT/HCPCS: 0241U-QW; 36415; 80053; 83690; 85025; 93005; 93010; 99284-25